=== PATIENT | female | born 1995 | race American Indian/Alaskan Native ===

== ENCOUNTER 2017-11-07 17:15 | Emergency (ER) | payer OTHER ==
[2017-11-07] MEDS ORDERED: Sodium Chloride 0.9% 1,000 ML IV STA (17:27)
--- NOTE | 2017-11-07 17:31 | ED PDOC ---
Arrival/HPI - General Chief Complaint: Abdominal Pain Time Seen by Provider: 11/07/17 17:23 Historian: Patient - History of Present Illness Narrative History of Present Illness (Text): 11/07/17 17:28 22yo who present to emergency department with complaint of left sided back and flank pain that radiates to her right pelvic area since this afternoon. Describes pain as cramping. States she is currently 24weeks and saw her OB on the . Reports pressure with urination. +Nausea. She denies vaginal bleeding/discharge, vomiting, diarrhea, constipation, fever, chills, any other complaint. Past Medical History - Provider Review Nursing Documentation Reviewed: Yes - Cardiac Hx Hypertension: Yes - Psychiatric Hx Substance Use: No - Surgical History Other/Comment: Yarsani sx Family/Social History - Physician Review Nursing Documentation Reviewed: Yes Family/Social History: Unknown Family HX Smoking Status: Never Smoked Hx Alcohol Use: No Hx Substance Use: No Allergies/Home Meds Allergies/Adverse Reactions: Allergies No Known Allergies Allergy (Verified 11/07/17 17:25) Home Medications: Home Meds Medication Instructions Recorded Confirmed Labetalol [Trandate] 200 mg PO BID 11/07/17 11/07/17 Vit Calc,Iron,Folic [Kpn] 1 tab PO DAILY 11/07/17 11/07/17 Review of Systems - Physician Review All systems were reviewed & negative as marked: Yes - Review of Systems Constitutional: Normal Eyes: Normal ENT: Normal Respiratory: Normal Cardiovascular: Normal Gastrointestinal: Abdominal Pain, Nausea. absent: Constipation, Diarrhea, Vomiting, Hematochezia, Hematemesis Genitourinary Female: Normal Musculoskeletal: Normal Skin: Normal Neurological: Normal Endocrine: Normal Hemo/Lymphatic: Normal Psychiatric: Normal Physical Exam Vital Signs Reviewed: Yes Vital Signs Temp Pulse Resp BP Pulse Ox 11/07/17 19:13 98 11/07/17 18:43 98.4 F 77 19 129/80 98 11/07/17 17:27 98.6 F 86 18 130/83 100 Temperature: Afebrile Blood Pressure: Normal Pulse: Regular Respiratory Rate: Normal Appearance: Positive for: Well-Appearing, Non-Toxic, Comfortable Pain Distress: None Mental Status: Positive for: Alert and Oriented X 3 - Systems Exam Head: Present: Atraumatic, Normocephalic Pupils: Present: PERRL Extroacular Muscles: Present: EOMI Conjunctiva: Present: Normal Mouth: Present: Moist Mucous Membranes Neck: Present: Normal Range of Motion Respiratory/Chest: Present: Clear to Auscultation, Good Air Exchange. No: Respiratory Distress, Accessory Muscle Use Cardiovascular: Present: Regular Rate and Rhythm, Normal S1, S2. No: Murmurs Abdomen: Present: Tenderness (Left flank tenderness), Distention (Gravid abdomen ), Normal Bowel Sounds, Other (soft). No: Peritoneal Signs, Rebound, Guarding, McBurney's Point Tender, Rovsing's Sign Present Back: Present: CVA Tenderness Upper Extremity: Present: Normal Inspection. No: Cyanosis, Edema Lower Extremity: Present: Normal Inspection. No: Edema Neurological: Present: GCS=15, CN II-XII Intact, Speech Normal Skin: Present: Warm, Dry, Normal Color. No: Rashes Psychiatric: Present: Alert, Oriented x 3, Normal Insight, Normal Concentration Medical Decision Making ED Course and Treatment: 11/07/17 19:13 22yo female who presented with complaint of left sided back/flank and left pelvic pain. Labs Urinalysis age US 11/07/17 20:33 PT refused to wait for her result. States her pain resolved and she will go home and follow up with OB. The importance of getting her result and transferring her to another facility for monitoring was DW the pt to prevent demise, permanent disability or even patient's . She states she understands these risk, but still insisted on signing out AMA. She was AAO x3 and have full mentation of making this decision. She signed out AMA - Lab Interpretations Lab Results: 11/07/17 17:35 11/07/17 17:35 Lab Results 11/07/17 17:35: Beta HCG, Quant 46160.00 H 11/07/17 17:35: Sodium 142, Potassium 3.8, Chloride 108 H, Carbon Dioxide 19 L, Anion Gap 18, BUN 6 L, Creatinine 0.6 L, Est GFR ( Amer) > 60, Est GFR ( Non-Af Amer) > 60, Random Glucose 80, Calcium 9.3, Total Bilirubin 0.2, AST 28, ALT 23, Alkaline Phosphatase 60, Total Protein 7.4, Albumin 3.9, Globulin 3.5, Albumin/Globulin Ratio 1.1 11/07/17 17:35: Urine Color Yellow, Urine Appearance Clear, Urine pH 6.0, Ur Specific [place] >= 1.030, Urine Protein Trace H, Urine Glucose (UA) Negative, Urine Ketones >=80, Urine Blood Negative, Urine Nitrate Negative, Urine Bilirubin Negative, Urine Urobilinogen 0.2, Ur Leukocyte Esterase Negative, Urine RBC Negative, Urine WBC 2 - 5, Ur Epithelial Cells 10 - 12, Urine Bacteria Few, Urine HCG, Qual Positive 11/07/17 17:35: PT 12.3, INR 1.08, APTT 26.2 11/07/17 17:35: WBC 9.6, RBC 4.68, Hgb 10.9 L, Hct 32.7 L, MCV 69.9 L, MCH 23.3 L, MCHC 33.3, RDW 14.6 H, Plt Count 340, MPV 9.9, Gran % 72.1 H, Lymph % (Auto) 18.4 L, [place] % (Auto) 8.0 H, Eos % (Auto) 1.4 L, Baso % (Auto) 0.1, Gran # 6.90 H, Lymph # (Auto) 1.8, [place] # (Auto) 0.8 H, Eos # (Auto) 0.1, Baso # (Auto) 0.01 - RAD Interpretation Radiology Orders: 11/07/17 17:26 AGE [US] Stat - Medication Orders Current Medication Orders: Discontinued Medications Sodium Chloride (Sodium Chloride 0.9%) 1,000 mls @ 999 mls/hr IV .Q1H1M STA Stop: 11/07/17 18:27 Last Admin: 11/07/17 17:46 Dose: 999 mls/hr eMAR Start Stop Document 11/07/17 17:46 SF (Rec: 11/07/17 17:46 SF [id number]) Intravenous Solution Start Date 11/07/17 Start Time 17:46 End Date 11/07/17 End time 18:47 Total Infusion Time 61 Disposition/Present on Arrival - Present on Arrival Any Indicators Present on Arrival: No History of DVT/PE: No History of Uncontrolled Diabetes: No Urinary Catheter: No History of Decub. Ulcer: No History Surgical Site Infection Following: None - Disposition Have Diagnosis and Disposition been Completed?: Yes Diagnosis: Abdominal pain during Disposition: AGAINST MEDICAL ADVICE Disposition Time: 18:45 Condition: FAIR Forms: [employer] ([place])
[2017-11-07 18:29] LABS: URINE BILIRUBIN NEGATIVE (NEGATIVE); URINE BLOOD NEGATIVE (NEGATIVE); URINE GLUCOSE (UA) NEGATIVE (NEGATIVE); URINE LEUKOCYTE ESTERASE NEGATIVE Leu/uL (NEGATIVE); URINE PROTEIN TRACE mg/dL (<30 mg/dL); URINE UROBILINOGEN 0.2 E.U./dL (<1 E.U./dL)
[2017-11-07 18:30] LABS: URINE APPEARANCE CLEAR (CLEAR); URINE COLOR YELLOW (YELLOW)
[2017-11-07 18:32] LABS: HCG,QUALITATIVE URINE POSITIVE (NEGATIVE)
[2017-11-07 18:34] LABS: URINE BACTERIA FEW (NEG); URINE RBC NEGATIVE /hpf (0-2)
[2017-11-07 18:35] LABS: ALB/GLOB RATIO 1.1 (1.1-1.8); ALBUMIN 3.9 g/dL (3.0-4.8); ALT/SGPT 23 U/L (7-56); AST/SGOT 28 U/L (14-36); BLOOD UREA NITROGEN 6 mg/dL (7-21); CALCIUM 9.3 mg/dL (8.4-10.5); GFR NON-AFRICAN AMERICAN > 60
[2017-11-07 18:38] LABS: BASO # 0.01 K/mm3 (0.0-2.0); BASO % 0.1 % (0.0-3.0); EOS # 0.1 (0.0-0.7); EOS % 1.4 % (1.5-5.0); GRAN # 6.9 (1.4-6.5); GRAN % 72.1 % (50.0-68.0); HEMOGLOBIN 10.9 g/dL (12.0-16.0); INR 1.08; LYMPH # 1.8 (1.2-3.4); LYMPH % 18.4 % (22.0-35.0); MEAN CELL VOLUME 69.9 fl (80.0-105.0); MEAN CORPUSCULAR HEMOGLOBIN 23.3 pg (25.0-35.0); MEAN CORPUSCULAR HGB CONC 33.3 g/dl (31.0-37.0); MEAN PLATELET VOLUME 9.9 fl (7.0-11.0); MONO # 0.8 (0.1-0.6); PARTIAL THROMBOPLASTIN TIME 26.2 Seconds (25.1-36.5); PROTHROMBIN TIME 12.3 SECONDS (9.4-12.5); RBC 4.68 10^6/uL (3.5-6.1); RED CELL DISTRIBUTION WIDTH 14.6 % (11.5-14.5); WHITE BLOOD COUNT 9.6 10^3/ul (4.5-11.0)
[2017-11-07 18:44] VITALS: BP 129/80; PULSE 77; RESP 19; O2SAT 98
[2017-11-07 19:13] VITALS: TEMP 98.4
--- NOTE | 2017-11-08 11:39 | US ---
Indication: Abdominal pain/ Comparison: None available Technique: Real-time ultrasound was performed through the pelvis. Findings: There is a single living fetus in cephalic presentation. Anterior placenta. The placenta is not previa. Bilateral ovaries were not visualized. There are no adnexal masses or cysts evident. No significant pelvic free fluid identified. Cervix length measures approximately 4.5 cm. Measurements and calculations: Fetus has a composite sonographic age of 24 weeks 2 days. This calculation is based on the biparietal diameter, head circumference, abdominal circumference, and femur length. Estimated heart rate 146 beats per min. Estimated weight 618.65 g 92.8 g. The study was performed for the emergent evaluation of pain, and the whole anatomic survey of the fetus was not performed. This should be performed on an outpatient elective basis as clinically warranted. Impression: Single living fetus with a composite sonographic age of 24 weeks 2 days. Estimated heart rate 146 beats per min. Preliminary impression was provided by virtual radiologic.
== END 2017-11-07 18:43 | disposition left against medical advice (07) ==
LOC: ED 17:15
DX: O26.892 Other specified pregnancy related conditions, second trimester (principal); R10.9 Unspecified abdominal pain; Z3A.24 24 weeks gestation of pregnancy
CPT/HCPCS: 76815; 80053; 81001; 84702; 84703; 85025; 85610; 85730; 96360; 99285; J7030